=== PATIENT | female | born 1955 | race Caucasian/White ===

== ENCOUNTER 2023-07-10 15:35 | Emergency (ER) | payer MEDICARE, SELFPAY ==
[2023-07-10 15:36] VITALS: BP 153/93; PULSE 83; RESP 15; TEMP 36.4; O2SAT 94
--- NOTE | 2023-07-10 15:59 | EDS_ITS ---
HPI History of Present Illness Chief Complaint: Itching Informant: patient Narrative Narrative: Presents increasing pruritus with hives starting arms yesterday. No lip or tongue swelling. Spread throughout her body. She states she changed detergents 3 weeks ago she was in [place] and then she has been using this currently in [place] for the past week living with her daughter. She was not outdoors no plant exposure. No different foods. She has seasonal allergies on Zyrtec. Prediabetic she recently was ordered for Ozempic weekly however has not started it. PFSH PFS Home Medications ?Medication ?Instructions ?Recorded ?Last Taken ?Type prednisone 20 mg tablet 40 mg (2 x 20 mg) PO DAILY #12 07/10/23 Unknown Rx TABLETS Allergy/AdvReac Type Severity Reaction Status Date / Time Penicillins Allergy Rash Verified 07/10/23 15:40 ROS ROS ED Constitutional Constitutional ED: Denies chills, fever(s) or sweats Eyes Eyes: Denies change in vision ENT ENT ED: Denies dysphagia or sore throat Cardiovascular Cardiovascular: Denies chest pain, leg edema, palpitations or racing heartbeat Respiratory/Chest Respiratory/Chest: Denies cough, dyspnea or dyspnea on exertion Gastrointestinal Gastrointestinal: Denies abdominal pain, diarrhea, nausea or vomiting Genitourinary Genitourinary ED: Denies dysuria, hematuria or urinary frequency Musculoskeletal Musculoskeletal: Denies back pain, extremity pain or neck pain Integumentary Reports rash; Denies wounds Neurologic Neurologic: Denies headache(s), paresthesias or weakness EXAM Physical Exam Const Vital Signs: 07/10/23 15:36 Temperature 97.5 F L Temperature Source Temporal Pulse Rate 83 Respiratory Rate 15 Blood Pressure 153/93 H Blood Pressure Mean 113 Pulse Ox 94 Oxygen Delivery Method Room Air Positive well nourished and well developed General Appearance ED: well developed and NAD HEENT Reports moist mucous membranes HEENT Narrative: Dentures removed, there is no oral lesions. normocephalic and atraumatic Eyes EOMs intact bilaterally and conjunctivae normal General Eye ED: Yes normal appearance of both eyes Neck no lymphadenopathy and supple General: Negative for tenderness Chest Wall Chest: Negative for tenderness Resp normal respiratory effort and normal air movement Effort and Inspection: symmetric chest movement; Negative for respiratory distress Cardio regular rate, regular rhythm and no murmurs Peripheral Pulses: pulses 2+ throughout GI normal to inspection, nondistended, normoactive bowel sounds and non-tender Palpation: Negative for guarding or rebound tenderness present Back/Spine no CVA tenderness and no thoracic nor lumbar tenderness Extremity normal to inspection General Extremety ED: Negative for edema or tenderness General Extremity: Negative for edema Neuro oriented x3 and no sensory deficits noted Sensorium / Orientation: awake and alert Skin no wounds Skin Narrative: Diffuse scattered raised lesions circumferential upper torso bilateral arms and legs. There is no streaking. No target lesions. No fluctuance, no drainage. MDM MDM MDM Narrative Medical decision making narrative: Interventions / MDM: Differential diagnosis: Pruritic rash, urticaria Diagnosis considered but do not suspect: No clinical anaphylaxis My EKG interpretation: N/A Imaging independently reviewed and interpreted by myself: N/A External documents reviewed: N/A Test considered but not ordered:N/A ED course: no clinical anaphylaxis. Likely allergic rash, moved to the area with high environmental allergies. She does not check her glucose before POC glucose ordered which is 98. Started on 7-day of prednisone and Benadryl. 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 She is given follow-up with local physician. Return precautions. All questions were answered. Re-evaluation: stable Disposition discussed with patient/family/significant other: Patient Case discussed with consulting clinician: N/A This note was generated with [employer] dictation software. It may contain incorrect words, spelling, and punctuation that were not noted in checking the note before signing. Lab Data Labs: Laboratory Results - last 24 hr 07/10/23 16:01 POC Glucose 98 Discharge Plan Triage Chief Complaint: Itching ED Provider: Bright Horn Dx/Rx/DC Orders Clinical Impression: Rash and nonspecific skin eruption, History of prediabetes Instructions: Nonspecific Skin Rash Prescriptions: New prednisone 20 mg tablet 40 mg PO DAILY Qty: 12 0RF Rx Instructions: next dose 07/11/23 Primary Care Provider: Care Physician,No Primary Referrals: Zohaib Chavez MD [Med Staff - Application Systems Architect] - 1-2 Weeks Care Physician,No Primary [Primary Care Provider] - Activity Restrictions/Additional Instructions: Next dose of prednisone tomorrow. 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 Continue your Zyrtec. If you develop any lip or tongue swelling or trouble breathing, return to the ED for reevaluation. Follow-up with Dr. Molina as an outpatient. Print Language: Turkmen Disposition Disposition: Home, Self Care
[2023-07-10] MEDS: DiphenhydrAMINE 25 MG Capsule PO (16:13)
[2023-07-10] MEDS: predniSONE 20 MG Tablet 40 MG PO (16:13)
[2023-07-10 16:18] LABS: Bedside Glucose 98 mg/dL (74-106)
[2023-07-10 16:48] VITALS: BP 147/80; PULSE 77; RESP 14; TEMP 36.4; O2SAT 96
== END 2023-07-10 16:49 | disposition home or self-care (01) ==
PROVIDERS: Emergency Provider Emergency Medicine; Visit Provider Emergency Medicine
DX: R21 Rash and other nonspecific skin eruption (principal); R73.03 Prediabetes
CPT/HCPCS: 82962; 99282